=== PATIENT | female | born 1950 | race Caucasian/White ===

== ENCOUNTER 2020-05-06 17:58 | Observation (INO) | payer OTHER ==
--- NOTE | 2020-05-06 18:13 | PDOC ---
Rapid Medical Evaluation Chief Complaint: Eye Problem Time Seen by Provider: 05/06/20 18:11 Medical Evaluation: Allergies Allergy/AdvReac Type Severity Reaction Status Date / Time No Known Allergies Allergy Verified 10/25/14 17:31 Vital Signs Temp Pulse Resp BP Pulse Ox 98.6 F 91 H 16 159/78 98 05/06/20 18:08 05/06/20 18:08 05/06/20 18:08 05/06/20 18:08 05/06/20 18:08 05/06/20 18:11 CC: sudden broken blood vessell to left eye, no exertional activity, hx htn Exam: vss, noted sub hemorrhage to lat aspect of left sclera Plan: ft Discharge Disposition - Diagnosis Subconjunctival hemorrhage - Referrals - Patient Instructions - Post Discharge Activity
[2020-05-06 18:18] VITALS: BMI 24.5
--- NOTE | 2020-05-06 18:24 | PDOC ---
History of Present Illness - General Chief Complaint: Eye Problem Stated Complaint: L EYE REDNESS Time Seen by Provider: 05/06/20 18:11 History Source: Patient Exam Limitations: No Limitations Past History - Travel History Traveled outside of the country in the last 30 days: No Close contact w/someone who was outside of country & ill: No - Medical History Allergies/Adverse Reactions: Allergies Allergy/AdvReac Type Severity Reaction Status Date / Time No Known Allergies Allergy Verified 10/25/14 17:31 Home Medications: Ambulatory Orders Valsartan/Hydrochlorothiazide [Valsartan-Hctz 80-12.5 mg Tab] 1 each PO DAILY 05/06/20 Anemia: No Asthma: No Cancer: No Cardiac Disorders: No CVA: No COPD: No CHF: No Dementia: No Diabetes: No GI Disorders: No Disorders: No HTN: No Hypercholesterolemia: No Liver Disease: No Seizures: No Thyroid Disease: No - Surgical History Abdominal Surgery: No Appendectomy: No Cardiac Surgery: No Cholecystectomy: No Lung Surgery: No Neurologic Surgery: No Orthopedic Surgery: No - Psycho-Social/Smoking History Smoking Status: No Smoking History: Never smoked Have you smoked in the past 12 months: No Number of Cigarettes Smoked Daily: 0 - Substance Abuse Hx (Audit-C & DAST Scrn) How often the patient has a drink containing alcohol: Never Score: In Men: 4 or > Positive; In Women: 3 or > Positive: 0 Screen Result (Pos requires Nsg. Audit-10AR): Negative Review of Systems - Review of Systems Able to Perform ROS?: Yes Comments:: 05/06/20 21:36 CONSTITUTIONAL: Absent: fever, chills, diaphoresis, generalized weakness, malaise, loss of appetite HEENT: Present: Redness to the left eye absent: rhinorrhea, nasal congestion, throat pain, throat swelling, difficulty swallowing, mouth swelling, ear pain, eye pain, visual Changes CARDIOVASCULAR: Absent: chest pain, loss of consciousness, palpitations, irregular heart rate, peripheral edema RESPIRATORY: Absent: cough, shortness of breath, dyspnea with exertion, orthopnea, wheezing, stridor, hemoptysis GASTROINTESTINAL: Absent: abdominal pain, abdominal distension, nausea, vomiting, diarrhea, constipation, melena, hematochezia GENITOURINARY: Absent: dysuria, frequency, urgency, hesitancy, hematuria, flank pain, genital pain MUSCULOSKELETAL: Absent: myalgia, arthralgia, joint swelling SKIN: Absent: rash, itching, pallor HEMATOLOGIC/IMMUNOLOGIC: Absent: easy bleeding, easy bruising, lymphadenopathy, frequent infections ENDOCRINE: Absent: unexplained weight gain, unexplained weight loss, heat intolerance, cold intolerance NEUROLOGIC: Present: Lightheadedness absent: headache, focal weakness or paresthesias, dizziness, unsteady gait, seizure, mental status changes, bladder or bowel incontinence PSYCHIATRIC: Absent: anxiety, depression, suicidal or homicidal ideation, hallucinations. Is the patient limited Malaysian proficient: No *Physical Exam - Vital Signs Last Vital Signs Temp Pulse Resp BP Pulse Ox 98.6 F 91 H 16 159/78 98 05/06/20 18:08 05/06/20 18:08 05/06/20 18:08 05/06/20 18:08 05/06/20 18:08 - Physical Exam 05/06/20 21:37 GENERAL: Well developed, well nourished. Awake and alert. No acute distress. HEENT: Normocephalic, atraumatic. PERRLA, EOMI. No conjunctival pallor. Left sclera with subconjunctival hemorrhage at the lateral canthus. Sclera are non-icteric. Moist mucous membranes. Oropharynx is clear. NECK: Supple. Full ROM. No JVD. Carotid pulses 2+ and symmetric, without bruits. No thyromegaly. No lymphadenopathy. CARDIOVASCULAR: Regular rate and rhythm. No murmurs, rubs, or gallops. Distal pulses are 2+ and symmetric. PULMONARY: No evidence of respiratory distress. Lungs clear to auscultation bilaterally. No wheezing, rales or rhonchi. ABDOMINAL: Soft. Non-tender. Non-distended. No rebound or guarding. No organomegaly. Normoa ctive bowel sounds. MUSCULOSKELETAL Normal range of motion at all joints. No bony deformities or tenderness. No CVA tenderness. EXTREMITIES: No cyanosis. No clubbing. No edema. No calf tenderness. SKIN: Warm and dry. Normal capillary refill. No rashes. No jaundice. NEUROLOGICAL: Alert, awake, appropriate. Cranial nerves 2-12 intact. No deficits to light touch and temperature in face, upper extremities and lower extremities. No motor deficits in the in face, upper extremities and lower extremities. Normoreflexic in the upper and lower extremities. Normal speech. Toes are down-going bilate rally. Gait is normal without ataxia. PSYCHIATRIC: Cooperative. Good eye contact. Appropriate mood and affect. Heart Score/ECG Review - History History: Slightly suspicious - Electrocardiogram EKG: Non specific repolarization disturbance - Age Age: >/= 65 - Risk Factors Risk Factors Heart Score: Yes Hx Hypercholesterolemia, Yes Hx Hypertension Based on the list above the patient has:: 1-2 risk factors - Troponin Troponin: </= normal limit - Score Heart Score - Total: 4 ED Treatment Course - LABORATORY CBC & Chemistry Diagram: 05/06/20 19:00 05/06/20 19:00 Medical Decision Making - Medical Decision Making 05/06/20 21:38 The patient is a 69-year-old female past medical history of hyperlipidemia, HLD, presents to the ER today for lightheadedness and redness to her left eye. She states that she has been lightheaded for the past 4 days. She states that she has noticed her blood pressure has been elevated at home. She states that she was working on a computer today when she had redness to her left lateral eye, which prompted her to come to the emergency department. She states she took 2 aspirin prior to arrival. Denies chest pain, difficulty breathing, nausea, vomiting, fever. A/P: Lightheadedness, subconjunctival hemorrhage. On exam patient is a left subconjunctival hemorrhage to the left lateral canthus. Vision is 20/20 OU, OS, OD Regular rate and rhythm on exam. No murmurs rubs or gallops. Patient is neurologically intact with no focal deficits. Basic labs, EKG ordered given new onset of lightheadedness. EKG shows rate of 77 bpm, normal axis. QTC 439. Flattened T waves in V2, V3. Q waves in lead III, possible new right bundle branch in V1. No old EKG to compare to. Labs are grossly unremarkable. COVID sent. Head CT negative for acute pathology including bleed Given EKG changes with new onset lightheadedness, will place the patient to telemetry opts for further management of her symptoms. Symphony paged. Discharge - Discharge Information Problems reviewed: Yes Clinical Impression/Diagnosis: Abnormal EKG, Lightheaded Subconjunctival hemorrhage Qualifiers: Laterality: left Qualified Code(s): H11.32 - Conjunctival hemorrhage, left eye Condition: Stable - Admission Yes - Follow up/Referral Referrals: Shital Dial MD [Primary Care Provider] - - Patient Discharge Instructions - Post Discharge Activity
[2020-05-06 19:34] LABS: BASO % 1.1 % (0-2.0); EOS % 0.8 % (0-4.5); HEMATOCRIT 40.8 % (32.4-45.2); HEMOGLOBIN 13.5 GM/dL (10.7-15.3); LYMPH % 35.2 % (8-40); MCH 29.4 pg (25.7-33.7); MEAN CELL VOLUME 89.1 fl (80-96); MEAN PLT VOLUME 10.4 fl (7.5-11.1); MONO % 8.5 % (3.8-10.2); NEUT % 54.4 % (42.8-82.8); PLATELET COUNT 202 K/MM3 (134-434); RBC 4.58 M/mm3 (3.60-5.2); WHITE BLOOD COUNT 7.1 K/mm3 (4.0-10.0)
[2020-05-06 19:41] LABS: INR 1.04 (0.83-1.09); PROTHROMBIN TIME (PATIENT) 12.3 SEC (9.7-13.0)
[2020-05-06 20:19] LABS: ALK PHOS 91 U/L (45-117); ANION GAP 11 MMOL/L (8-16); BILIRUBIN,TOTAL 0.4 mg/dL (0.2-1); BLOOD UREA NITROGEN 21.9 mg/dL (7-18); CALCIUM 9.4 mg/dL (8.5-10.1); CHLORIDE 105 mmol/L (98-107); CO2 24 mmol/L (21-32); CREATININE 0.9 mg/dL (0.55-1.3); GLUCOSE,RANDOM 102 mg/dL (74-106); POTASSIUM 3.8 mmol/L (3.5-5.1); SGOT/AST 20 U/L (15-37); SGPT/ALT 24 U/L (13-61); SODIUM 139 mmol/L (136-145); TOT PROT 8.4 g/dl (6.4-8.2)
--- NOTE | 2020-05-06 23:14 | HP ---
<Ruth Carpenter - Last Filed: 05/06/20 23:53> CHIEF COMPLAINT: left eye bleeding PCP: Dr. Dial HISTORY OF PRESENT ILLNESS: 69 y.o. F PMH HTN presenting for 1 day history of left conjunctival hemorrhage. Patient noticed there was blood in the lateral left conjunctiva earlier this afternoon and was instructed by her family to go to the ED. Patient denies any trauma to the left eye; no straining while defecating, no coughing fits. Patient also endorsing lightheadedness that she has had for the past few days but worsened earlier today when she saw blood in her eye. On my exam patients lightheadedness has completely resolved. She states she was prescribed valsartan-hctz combo pill 160-25mg daily by her PCP however she only takes half of the pill daily because she "does not believe in taking medication". Endorses having skipped doses in the past. She does not take any blood thinners but will sometimes take NSAIDS for minor aches and pains. ROS: + lightheadedness Denies: vision changes/ diplopia, chest pain, SOB, palpitations, diaphoresis, abd pain, urine/bowel habit changes, myalgias, parasthesias ER course was notable for: (1) Trop negative x 1 (2) EKG: NSR rate 77 bpm. TWI in V1; flattened TW V2/V3. qtc 439 (3) CT head negative Recent Travel: denies PAST MEDICAL HISTORY: htn PAST SURGICAL HISTORY: right olecranon ORIF 2014 Social History: Smoking: denies Alcohol: denies Drugs: denies Allergies No Known Allergies Allergy (Verified 10/25/14 17:31) HOME MEDICATIONS: Home Medications Medication Instructions Recorded Valsartan/Hydrochlorothiazide 1 each PO DAILY 05/06/20 [Valsartan-Hctz 80-12.5 mg Tab] PHYSICAL EXAMINATION Vital Signs - 24 hr 05/06/20 05/06/20 05/06/20 18:08 19:06 19:57 Temperature 98.6 F Pulse Rate 91 H Pulse Rate [ 80 Apical] Respiratory 16 Rate Blood Pressure 159/78 Blood Pressure 157/90 [Right Arm] O2 Sat by Pulse 98 100 Oximetry (%) GENERAL: AAOx3, in no acute distress HEENT: NCAT, PERRLA, EOMI. Left lateral and inferior conjunctival hemorrhage, no active bleeding. Sclera anicteric, oropharynx clear w/o exudates. MMM. NECK: Normal ROM, supple, no JVD LUNGS: CTABL no wheezes/ rhonchi/ rales. No distress, speaks in full sentences. No increased work of breathing. HEART: RRR, normal S1 S2, no M/R/G, peripheral pulses 2+ and equal b/l ABDOMEN: Soft, NTND, + BS. No guarding or rebound. No organomegaly. MSK: ROM WNL EXTREMITIES: Normal inspection. No peripheral edema. No clubbing or cyanosis. NEUROLOGICAL: CN II-XII intact. No focal sensorimotor deficits. SKIN: Warm, Dry, normal turgor, no rashes or lesions noted Laboratory Results - last 24 hr 05/06/20 05/06/20 05/06/20 19:00 19:00 19:00 WBC 7.1 RBC 4.58 Hgb 13.5 Hct 40.8 MCV 89.1 MCH 29.4 MCHC 33.0 RDW 14.0 Plt Count 202 MPV 10.4 Absolute Neuts (auto) 3.9 Neutrophils % 54.4 Lymphocytes % 35.2 Monocytes % 8.5 Eosinophils % 0.8 Basophils % 1.1 Nucleated RBC % 0 PT with INR 12.30 INR 1.04 Sodium 139 Potassium 3.8 Chloride 105 Carbon Dioxide 24 Anion Gap 11 BUN 21.9 H Creatinine 0.9 Est GFR (CKD-EPI)AfAm 75.61 Est GFR (CKD-EPI)NonAf 65.24 Random Glucose 102 Calcium 9.4 Total Bilirubin 0.4 AST 20 ALT 24 Alkaline Phosphatase 91 Creatine Kinase 98 Troponin I < 0.02 Total Protein 8.4 H Albumin 4.0 TSH 1.46 ASSESSMENT/PLAN: 69 y.o. F PMH HTN presenting for left conjunctival hemorrhage. Admitted to tele obs for EKG changes. #EKG changes -EKG: NSR rate 77 bpm. TWI in V1; flattened TW V2/V3. qtc 439; no prior for comparison -trop negative x 1; trend -cardio was consulted while in ED: Dr. Cruz -monitor on tele obs #Conjunctival hemorrhage -No active bleeding, no vision changes, extraocular muscles are intact -continue to monitor for worsening bleeding -avoid NSAIDs for now #HTN -continue home meds: Valsartan/hctz 160-25mg daily -regular bp monitoring #Lightheadedness -now resolved -f/u UA #FEN -no standing fluids -monitor & replete lytes prn -na controlled diet #PPX -DVT: early ambulation. SCDs while supine. #Dispo tele obs Visit type - Emergency Visit Emergency Visit: Yes ED Registration Date: 05/06/20 Care time: The patient presented to the Emergency Department on the above date and was hospitalized for further evaluation of their emergent condition. - New Patient This patient is new to me today: Yes Date on this admission: 05/06/20 - Critical Care Critical Care patient: No ATTENDING PHYSICIAN STATEMENT I saw and evaluated the patient. I reviewed the resident's note and discussed the case with the resident. I agree with the resident's findings and plan as documented. SUBJECTIVE: OBJECTIVE: ASSESSMENT AND PLAN: <Essence Lin - Last Filed: 05/07/20 06:41> CHIEF COMPLAINT: PCP: HISTORY OF PRESENT ILLNESS: ER course was notable for: (1) (2) (3) Recent Travel: PAST MEDICAL HISTORY: PAST SURGICAL HISTORY: Social History: Smoking: Alcohol: Drugs: Allergies No Known Allergies Allergy (Verified 10/25/14 17:31) HOME MEDICATIONS: Home Medications Medication Instructions Recorded Valsartan/Hydrochlorothiazide 1 each PO DAILY 05/06/20 [Valsartan-Hctz 160-25 mg Tab] REVIEW OF SYSTEMS CONSTITUTIONAL: Absent: fever, chills, diaphoresis, generalized weakness, malaise, loss of appetite, weight change HEENT: Absent: rhinorrhea, nasal congestion, throat pain, throat swelling, difficulty swallowing, mouth swelling, ear pain, eye pain, visual changes CARDIOVASCULAR: Absent: chest pain, syncope, palpitations, irregular heart rate, lightheadedness, peripheral edema RESPIRATORY: Absent: cough, shortness of breath, dyspnea with exertion, orthopnea, wheezing, stridor, hemoptysis GASTROINTESTINAL: Absent: abdominal pain, abdominal distension, nausea, vomiting, diarrhea, constipation, melena, hematochezia GENITOURINARY: Absent: dysuria, frequency, urgency, hesitancy, hematuria, flank pain, genital pain MUSCULOSKELETAL: Absent: myalgia, arthralgia, joint swelling, back pain, neck pain SKIN: Absent: rash, itching, pallor HEMATOLOGIC/IMMUNOLOGIC: Absent: easy bleeding, easy bruising, lymphadenopathy, frequent infections ENDOCRINE: Absent: unexplained weight gain, unexplained weight loss, heat intolerance, cold intolerance NEUROLOGIC: Absent: headache, focal weakness or paresthesias, dizziness, unsteady gait, seizure, mental status changes, bladder or bowel incontinence PSYCHIATRIC: Absent: anxiety, depression, suicidal or homicidal ideation, hallucinations. PHYSICAL EXAMINATION Vital Signs - 24 hr 05/06/20 05/06/20 05/06/20 18:08 19:06 19:57 Temperature 98.6 F Pulse Rate 91 H Pulse Rate [ 80 Apical] Pulse Rate [ Standing] Respiratory 16 Rate Blood Pressure 159/78 Blood Pressure 157/90 [Right Arm] Blood Pressure [Standing] O2 Sat by Pulse 98 100 Oximetry (%) 05/06/20 05/06/20 22:42 23:13 Temperature 98 F Pulse Rate 77 Pulse Rate [ Apical] Pulse Rate [ 85 Standing] Respiratory 16 Rate Blood Pressure 156/71 Blood Pressure [Right Arm] Blood Pressure 141/66 [Standing] O2 Sat by Pulse 100 Oximetry (%) GENERAL: Awake, alert, and fully oriented, in no acute distress. HEAD: Normal with no signs of trauma. EYES: Pupils equal, round and reactive to light, extraocular movements intact, sclera anicteric, conjunctiva clear. No lid lag. EARS, NOSE, THROAT: Ears normal, nares patent, oropharynx clear without exudates. Moist mucous membranes. NECK: Normal range of motion, supple without lymphadenopathy, JVD, or masses. LUNGS: Breath sounds equal, clear to auscultation bilaterally. No wheezes, and no crackles. No accessory muscle use. HEART: Regular rate and rhythm, normal S1 and S2 without murmur, rub or gallop. ABDOMEN: Soft, nontender, not distended, normoactive bowel sounds, no guarding, no rebound, no masses. No hepatomegaly or splenomegaly. MUSCULOSKELETAL: Normal range of motion at all joints. No bony deformities or tenderness. No CVA tenderness. UPPER EXTREMITIES: 2+ pulses, warm, well-perfused. No cyanosis. No clubbing. No peripheral edema. LOWER EXTREMITIES: 2+ pulses, warm, well-perfused. No calf tenderness. No peripheral edema. NEUROLOGICAL: Cranial nerves II-XII intact. Normal speech. Normal gait. PSYCHIATRIC: Cooperative. Good eye contact. Appropriate mood and affect. SKIN: Warm, dry, normal turgor, no rashes or lesions noted, normal capillary refill. Laboratory Results - last 24 hr 05/06/20 05/06/20 05/06/20 19:00 19:00 19:00 WBC 7.1 RBC 4.58 Hgb 13.5 Hct 40.8 MCV 89.1 MCH 29.4 MCHC 33.0 RDW 14.0 Plt Count 202 MPV 10.4 Absolute Neuts (auto) 3.9 Neutrophils % 54.4 Lymphocytes % 35.2 Monocytes % 8.5 Eosinophils % 0.8 Basophils % 1.1 Nucleated RBC % 0 PT with INR 12.30 INR 1.04 Sodium 139 Potassium 3.8 Chloride 105 Carbon Dioxide 24 Anion Gap 11 BUN 21.9 H Creatinine 0.9 Est GFR (CKD-EPI)AfAm 75.61 Est GFR (CKD-EPI)NonAf 65.24 Random Glucose 102 Calcium 9.4 Total Bilirubin 0.4 AST 20 ALT 24 Alkaline Phosphatase 91 Creatine Kinase 98 Troponin I < 0.02 Total Protein 8.4 H Albumin 4.0 TSH 1.46 Urine Color Urine Appearance Urine pH Ur Specific [place] Urine Protein Urine Glucose (UA) Urine Ketones Urine Blood Urine Nitrite Urine Bilirubin Urine Urobilinogen Ur Leukocyte Esterase Urine WBC (Auto) Urine RBC (Auto) Urine Casts (Auto) U Epithel Cells (Auto) Urine Bacteria (Auto) 05/06/20 05/06/20 23:00 23:59 WBC RBC Hgb Hct MCV MCH MCHC RDW Plt Count MPV Absolute Neuts (auto) Neutrophils % Lymphocytes % Monocytes % Eosinophils % Basophils % Nucleated RBC % PT with INR INR Sodium Potassium Chloride Carbon Dioxide Anion Gap BUN Creatinine Est GFR (CKD-EPI)AfAm Est GFR (CKD-EPI)NonAf Random Glucose Calcium Total Bilirubin AST ALT Alkaline Phosphatase Creatine Kinase 99 Troponin I < 0.02 Total Protein Albumin TSH Urine Color Yellow Urine Appearance Clear Urine pH 7.0 Ur Specific [place] 1.006 L Urine Protein Negative Urine Glucose (UA) Negative Urine Ketones Trace H Urine Blood Negative Urine Nitrite Negative Urine Bilirubin Negative Urine Urobilinogen 0.2 Ur Leukocyte Esterase 1+ H Urine WBC (Auto) 76 Urine RBC (Auto) 6 Urine Casts (Auto) 1 U Epithel Cells (Auto) 6 Urine Bacteria (Auto) 19 ASSESSMENT/PLAN: ATTENDING PHYSICIAN STATEMENT I saw and evaluated the patient. I reviewed the resident's note and discussed the case with the resident. I agree with the resident's findings and plan as documented. SUBJECTIVE: OBJECTIVE: ASSESSMENT AND PLAN: 69 year old Female with a PMHx notable for HTN presenting with left conjunctival hemorrhage. Admitted to telemetry obs for EKG changes. #EKG changes -Trop negative x 1; continue to trend -Cardiology was consulted #Conjunctival hemorrhage -No active bleeding, no vision changes, extraocular muscles are intact -Supportive care
[2020-05-07 00:19] LABS: EPI CELLS 6 /uL (0-25.1); HYALINE CASTS 1 /uL (0-3.1); URINE APPEARANCE CLEAR; URINE BACTERIA 19 /uL (0-1359); URINE BILIRUBIN NEGATIVE (NEGATIVE); URINE COLOR YELLOW; URINE GLUCOSE (UA) NEGATIVE (NEGATIVE); URINE KETONE TRACE (NEGATIVE); URINE LEUK ESTERASE 1+ (NEGATIVE); URINE NITRITE NEGATIVE (NEGATIVE); URINE PROTEIN NEGATIVE (NEGATIVE); URINE RBC 6 /uL (0-23.9); URINE UROBILINOGEN 0.2 mg/dL (0.2-1.0); URINE WBC 76 /uL (0-25.8)
[2020-05-07 06:05] LABS: HEMATOCRIT 37.6 % (32.4-45.2); HEMOGLOBIN 12.6 GM/dL (10.7-15.3); MCH 29.3 pg (25.7-33.7); MCHC 33.5 g/dl (32.0-36.0); MEAN CELL VOLUME 87.4 fl (80-96); MEAN PLT VOLUME 10.4 fl (7.5-11.1); PLATELET COUNT 198 K/MM3 (134-434); RBC 4.31 M/mm3 (3.60-5.2); RDW 13.9 % (11.6-15.6); WHITE BLOOD COUNT 6.3 K/mm3 (4.0-10.0)
[2020-05-07 06:33] LABS: ANION GAP 5 MMOL/L (8-16); BLOOD UREA NITROGEN 16.9 mg/dL (7-18); CALCIUM 9.3 mg/dL (8.5-10.1); CHLORIDE 108 mmol/L (98-107); CO2 28 mmol/L (21-32); CREATININE 0.8 mg/dL (0.55-1.3); GLUCOSE,RANDOM 100 mg/dL (74-106); MAGNESIUM 2.2 mg/dL (1.8-2.4); PHOSPHOROUS 4.1 mg/dL (2.5-4.9); POTASSIUM 3.9 mmol/L (3.5-5.1); SODIUM 141 mmol/L (136-145)
--- NOTE | 2020-05-07 07:48 | PN ---
Teaching Attending Note Name of Resident: Mark Muhammad ATTENDING PHYSICIAN STATEMENT I saw and evaluated the patient. I reviewed the resident's note and discussed the case with the resident. I agree with the resident's findings and plan as documented. SUBJECTIVE: Patient denies any chest pain , no shortness of breath. OBJECTIVE: Vital Signs Temperature 98 F 05/06/20 22:42 Pulse Rate 57 L 05/07/20 03:11 Respiratory Rate 14 05/07/20 03:11 Blood Pressure 139/75 05/07/20 03:11 O2 Sat by Pulse Oximetry (%) 100 05/07/20 03:11 Initial Vital Signs Temp Pulse Resp BP Pulse Ox 98.6 F 91 H 16 159/78 98 05/06/20 18:08 05/06/20 18:08 05/06/20 18:08 05/06/20 18:08 05/06/20 18:08 PE: As per resident's note Chest: CTA BL CVS S1S2+ CBCD WBC 6.3 K/mm3 (4.0-10.0) 05/07/20 05:45 RBC 4.31 M/mm3 (3.60-5.2) 05/07/20 05:45 Hgb 12.6 GM/dL (10.7-15.3) 05/07/20 05:45 Hct 37.6 % (32.4-45.2) 05/07/20 05:45 MCV 87.4 fl (80-96) 05/07/20 05:45 MCHC 33.5 g/dl (32.0-36.0) 05/07/20 05:45 RDW 13.9 % (11.6-15.6) 05/07/20 05:45 Plt Count 198 K/MM3 (134-434) 05/07/20 05:45 MPV 10.4 fl (7.5-11.1) 05/07/20 05:45 CMP Sodium 141 mmol/L (136-145) 05/07/20 05:45 Potassium 3.9 mmol/L (3.5-5.1) 05/07/20 05:45 Chloride 108 mmol/L (98-107) H 05/07/20 05:45 Carbon Dioxide 28 mmol/L (21-32) 05/07/20 05:45 Anion Gap 5 MMOL/L (8-16) L 05/07/20 05:45 BUN 16.9 mg/dL (7-18) 05/07/20 05:45 Creatinine 0.8 mg/dL (0.55-1.3) 05/07/20 05:45 Random Glucose 100 mg/dL (74-106) 05/07/20 05:45 Calcium 9.3 mg/dL (8.5-10.1) 05/07/20 05:45 Total Bilirubin 0.4 mg/dL (0.2-1) 05/06/20 19:00 AST 20 U/L (15-37) 05/06/20 19:00 ALT 24 U/L (13-61) 05/06/20 19:00 Alkaline Phosphatase 91 U/L (45-117) 05/06/20 19:00 Total Protein 8.4 g/dl (6.4-8.2) H 05/06/20 19:00 Albumin 4.0 g/dl (3.4-5.0) 05/06/20 19:00 CARDIAC ENZYMES Creatine Kinase 99 U/L (26-192) 05/06/20 23:00 Troponin I < 0.02 ng/ml (0.00-0.05) 05/07/20 05:45 Current Medications Generic Name Dose Route Start Last Admin Trade Name Freq PRN Reason Stop Dose Admin Hydrochlorothiazide 25 mg 05/07/20 10:00 Hctz - PO DAILY [facility] Valsartan 160 mg 05/07/20 10:00 Diovan - PO DAILY [facility] Home Medications Medication Instructions Recorded Valsartan/Hydrochlorothiazide 1 each PO DAILY 05/06/20 [Valsartan-Hctz 160-25 mg Tab] CT scan: mild volume loss without evidence of acute Intracn pathology EKG: NSr, rate 77, flattening of T-waves on V2-V3 ASSESSMENT AND PLAN: This patient is a 69yof with PMhx of HTN , with EKG changes and was found to have conjunctival hemorrhage. patient is placed tele obs. #EKG changes: flattening of T-waves on V2/v3, qtc 439, 3 sets of trops are neg ative, cardio consulted; dr Cruz, as per cardio patient can be discharged home and further w/u as an outpatient. follow up with Dr Cruz within a week period. #Conjunctival hemorrhage: patient has no pain, will follow up with her own ophthalomologist #HTN controlled now: continue home meds: Valsartan/hctz 160-25mg daily, as per patient , she takes 1/2of the tablet , was suggested to take it as prescribed , one whole one #Lightheadedness: now resolved DVT Px: early ambulation. SCDs while supine.
--- NOTE | 2020-05-07 09:37 | EKG ---
Test Reason : Blood Pressure : / mmHG Vent. Rate : 077 BPM Atrial Rate : 077 BPM P-R Int : 144 ms QRS Dur : 080 ms QT Int : 388 ms P-R-T Axes : 063 010 061 degrees QTc Int : 439 ms NORMAL SINUS RHYTHM LEFT ATRIAL ENLARGEMENT INFERIOR INFARCT , AGE UNDETERMINED ABNORMAL ECG Confirmed by MD JUDI, RUTH ANN ([id number]) on 05/07/2020 9:37:17 AM Referred By: Confirmed By:RUTH ANN LAU MD
[2020-05-07] MEDS ORDERED: HYDROCHLOROTHIAZIDE 25 MG TABLET (FP) PO SCH (10:00)
[2020-05-07] MEDS ORDERED: VALSARTAN 160 MG TABLET (UD) PO SCH (10:00)
[2020-05-07] MEDS ORDERED: PATIENT'S OWN MEDICATION (NON-FORMULARY) (Valsartan/Hydrochlorothiazide [Valsartan-Hctz 16 PO SCH (10:00)
--- NOTE | 2020-05-07 10:51 | CON.CARD ---
Consult Consult Specialty:: Cardiology Referred by:: Hospitalist Medicine Reason for Consultation:: Abnormal ECG - History of Present Illness Chief Complaint: Subconjunctival hematoma, light-headedness History of Present Illness: 69 y.o. F PMH HTN presenting for 1 day history of left conjunctival hemorrhage. Patient noticed there was blood in the lateral left conjunctiva earlier this afternoon and was instructed by her family to go to the ED. Patient denies any trauma to the left eye; no straining while defecating, no coughing fits. Patient also reports positional lightheadedness since resolved. She states she was prescribed valsartan-hctz combo pill 160-25mg daily by her PCP however she only takes half of the pill daily because she "does not believe in taking medication". Endorses having skipped doses in the past. She does not take any blood thinners but will sometimes take NSAIDS for minor aches and pains. ROS: + lightheadedness Denies: vision changes/ diplopia, chest pain, SOB, palpitations, diaphoresis, abd pain, urine/bowel habit changes, myalgias, parasthesias, orthopnea, PND, LE edema or change in exercise capacity - History Source History Provided By: Patient Limitations to Obtaining History: No Limitations - Past Medical History Cardio/Vascular: Yes: HTN ...: No - Alcohol/Substance Use Hx Alcohol Use: Yes (RARE) - Smoking History Smoking history: Never smoked Have you smoked in the past 12 months: No Aproximately how many cigarettes per day: 0 Home Medications - Allergies Allergies/Adverse Reactions: Allergies Allergy/AdvReac Type Severity Reaction Status Date / Time No Known Allergies Allergy Verified 10/25/14 17:31 - Home Medications Home Medications: Ambulatory Orders Valsartan/Hydrochlorothiazide [Valsartan-Hctz 80-12.5 mg Tab] 1 tab PO DAILY 05/07/20 Review of Systems - Review of Systems Neurological: reports: Dizziness Vital Signs: Vital Signs Temperature 98 F 05/06/20 22:42 Pulse Rate 100 H 05/07/20 08:46 Respiratory Rate 05/07/20 08:00 Blood Pressure 149/91 05/07/20 08:46 O2 Sat by Pulse Oximetry (%) 98 05/07/20 07:11 Constitutional: Yes: No Distress, Calm Neck: Yes: Supple Respiratory: Yes: Regular, CTA Bilaterally Gastrointestinal: Yes: Normal Bowel Sounds, Soft Cardiovascular: Yes: Regular Rate and Rhythm JVD: No Carotid Bruit: No Heart Sounds: Yes: S1, S2 Edema: No - Other Data Labs, Other Data: CBC, BMP 05/07/20 05:45 05/07/20 05:45 INR, PTT INR 1.04 (0.83-1.09) 05/06/20 19:00 Troponin, BNP 05/06/20 05/06/20 05/07/20 19:00 23:00 05:45 Troponin I < 0.02 < 0.02 < 0.02 Troponin, BNP 05/06/20 05/06/20 05/07/20 19:00 23:00 05:45 Troponin I < 0.02 < 0.02 < 0.02 NSR inferior infarct age indeterminate Problem List - Problems (1) Hypertensive heart disease Code(s): I11.9 - HYPERTENSIVE HEART DISEASE WITHOUT HEART FAILURE Qualifiers: Heart failure presence: without heart failure Qualified Code(s): I11.9 - Hypertensive heart disease without heart failure (2) Orthostatic dizziness Code(s): R42 - DIZZINESS AND GIDDINESS (3) Abnormal EKG Code(s): R94.31 - ABNORMAL ELECTROCARDIOGRAM [ECG] [EKG] (4) Subconjunctival hemorrhage Code(s): H11.30 - CONJUNCTIVAL HEMORRHAGE, UNSPECIFIED EYE Qualifiers: Laterality: left Qualified Code(s): H11.32 - Conjunctival hemorrhage, left eye Assessment/Plan 1. Abnormal ECG 2. Left subconjunctival hemorrhage 3. HTN 4. Orthostatic dizziness since resolved P:1. Ruled out for [place] 2. Continue Valsartan 80 qd as hemodynamics tolerate 3. May d/c home with outpatient w/u for abnormal ECG 4. Thank you for consultative opportunity
--- NOTE | 2020-05-07 12:11 | EKG ---
Test Reason : Blood Pressure : / mmHG Vent. Rate : 076 BPM Atrial Rate : 076 BPM P-R Int : 134 ms QRS Dur : 082 ms QT Int : 420 ms P-R-T Axes : 053 -09 038 degrees QTc Int : 472 ms NORMAL SINUS RHYTHM INFERIOR-POSTERIOR INFARCT (CITED ON OR BEFORE 06-MAY-2020) ABNORMAL ECG Confirmed by MD LAU MOYSES ([id number]) on 05/07/2020 12:11:06 PM Referred By: Confirmed By:RUTH ANN LAU MD
[2020-05-07 12:18] VITALS: BP 144/66; PULSE 71
--- NOTE | 2020-05-07 15:02 | DS ---
Physical Exam: SUBJECTIVE: No overnight events. Patient seen and examined. Denies changes in vision, diplopia, and pain. ROS negative. OBJECTIVE: Vital Signs Period Temp Pulse Resp BP Sys/[place] Pulse Ox Last 24 Hr 98 F-98.6 F 57-100 14-16 139-170/66-91 98-100 PHYSICAL EXAM GENERAL: The patient is awake, alert, and fully oriented, in no acute distress. HEAD: Normal with no signs of trauma. MMM EYES: PERRL, extraocular movements intact, L eye conjunctival hemorrhage. No active bleeding. LUNGS: Breath sounds equal, clear to auscultation bilaterally, no wheezes, no crackles, no accessory muscle use. HEART: Regular rate and rhythm, S1, S2 without murmur, rub or gallop. ABDOMEN: Soft, nontender, nondistended, normoactive bowel sounds, no guarding, no rebound EXTREMITIES: 2+ pulses, warm, well-perfused, no edema. NEUROLOGICAL: Normal speech, gait not observed. PSYCH: Normal mood, normal affect. SKIN: Warm, dry, normal turgor, no rashes or lesions noted. LABS Laboratory Results - last 24 hr 05/06/20 05/06/20 05/06/20 19:00 19:00 19:00 WBC 7.1 RBC 4.58 Hgb 13.5 Hct 40.8 MCV 89.1 MCH 29.4 MCHC 33.0 RDW 14.0 Plt Count 202 MPV 10.4 Absolute Neuts (auto) 3.9 Neutrophils % 54.4 Lymphocytes % 35.2 Monocytes % 8.5 Eosinophils % 0.8 Basophils % 1.1 Nucleated RBC % 0 PT with INR 12.30 INR 1.04 Sodium 139 Potassium 3.8 Chloride 105 Carbon Dioxide 24 Anion Gap 11 BUN 21.9 H Creatinine 0.9 Est GFR (CKD-EPI)AfAm 75.61 Est GFR (CKD-EPI)NonAf 65.24 Random Glucose 102 Calcium 9.4 Phosphorus Magnesium Total Bilirubin 0.4 AST 20 ALT 24 Alkaline Phosphatase 91 Creatine Kinase 98 Troponin I < 0.02 Total Protein 8.4 H Albumin 4.0 TSH 1.46 Urine Color Urine Appearance Urine pH Ur Specific [place] Urine Protein Urine Glucose (UA) Urine Ketones Urine Blood Urine Nitrite Urine Bilirubin Urine Urobilinogen Ur Leukocyte Esterase Urine WBC (Auto) Urine RBC (Auto) Urine Casts (Auto) U Epithel Cells (Auto) Urine Bacteria (Auto) 05/06/20 05/06/20 05/07/20 23:00 23:59 05:45 WBC 6.3 RBC 4.31 Hgb 12.6 Hct 37.6 MCV 87.4 MCH 29.3 MCHC 33.5 RDW 13.9 Plt Count 198 MPV 10.4 Absolute Neuts (auto) Neutrophils % Lymphocytes % Monocytes % Eosinophils % Basophils % Nucleated RBC % PT with INR INR Sodium Potassium Chloride Carbon Dioxide Anion Gap BUN Creatinine Est GFR (CKD-EPI)AfAm Est GFR (CKD-EPI)NonAf Random Glucose Calcium Phosphorus Magnesium Total Bilirubin AST ALT Alkaline Phosphatase Creatine Kinase 99 Troponin I < 0.02 Total Protein Albumin TSH Urine Color Yellow Urine Appearance Clear Urine pH 7.0 Ur Specific [place] 1.006 L Urine Protein Negative Urine Glucose (UA) Negative Urine Ketones Trace H Urine Blood Negative Urine Nitrite Negative Urine Bilirubin Negative Urine Urobilinogen 0.2 Ur Leukocyte Esterase 1+ H Urine WBC (Auto) 76 Urine RBC (Auto) 6 Urine Casts (Auto) 1 U Epithel Cells (Auto) 6 Urine Bacteria (Auto) 19 05/07/20 05:45 WBC RBC Hgb Hct MCV MCH MCHC RDW Plt Count MPV Absolute Neuts (auto) Neutrophils % Lymphocytes % Monocytes % Eosinophils % Basophils % Nucleated RBC % PT with INR INR Sodium 141 Potassium 3.9 Chloride 108 H Carbon Dioxide 28 Anion Gap 5 L BUN 16.9 Creatinine 0.8 Est GFR (CKD-EPI)AfAm 87.18 Est GFR (CKD-EPI)NonAf 75.22 Random Glucose 100 Calcium 9.3 Phosphorus 4.1 Magnesium 2.2 Total Bilirubin AST ALT Alkaline Phosphatase Creatine Kinase Troponin I < 0.02 Total Protein Albumin TSH Urine Color Urine Appearance Urine pH Ur Specific [place] Urine Protein Urine Glucose (UA) Urine Ketones Urine Blood Urine Nitrite Urine Bilirubin Urine Urobilinogen Ur Leukocyte Esterase Urine WBC (Auto) Urine RBC (Auto) Urine Casts (Auto) U Epithel Cells (Auto) Urine Bacteria (Auto) HOSPITAL COURSE: 69 YO F PMH of p/w a day of conjunctival hemorrhage in her left eye and lightheadedness for a few days. Pt denied recent trauma. EKG showed sinus rhythm but T waver inversion in V1 and flattened T waves in V2 & V3. Pt was admitted for observation of her EKG changes. There was no active ocular bleeding or visual changes. Her extraocular muscle movements are intact. Pt denied diplopia. Trops were <0.[address] head was negative for acute changes. Her orthostatic vitals were negative for orthostatic hypotension. Pt is stable for discharge. Date of Admission:05/06/20 EKG: sinus rhythm but T waver inversion in V1 and flattened T waves in V2 & V3. Date of Discharge: 05/07/20 Minutes to complete discharge: 41 Discharge Summary Problems reviewed: Yes Reason For Visit: LIGHTHEADEDNESS,ABNORMAL ELECTROCARDIOGRAPHY Current Active Problems Abnormal EKG (Acute) Hypertensive heart disease (Acute) Lightheaded (Acute) Orthostatic dizziness (Acute) Subconjunctival hemorrhage (Acute) Condition: Stable - Instructions Diet, Activity, Other Instructions: You came to the hospital for dizziness and pain in your eye. You are stable for discharge. Please continue your home medications as prescribed. Please follow up with your primary care physician within a week to manage your healthcare. Please follow up with an ice hockey coach at discharge to further diagnose and manage your eye care. Please follow up with your glove sewer, Dr. Cruz , ,within a week to follow up your EKG findings. Please continue to live a healthy lifestyle and eat low sodium foods. If you have new, worsening , or concerning symptoms please return to the ER or call 911. Referrals: Roby Gil MD [Staff Physician] - Lucho Cruz MD [Staff Physician] - Shital Dial MD [Primary Care Provider] - Disposition: HOME - Home Medications Comprehensive Discharge Medication List: Ambulatory Orders Valsartan/Hydrochlorothiazide [Valsartan-Hctz 80-12.5 mg Tab] 1 tab PO DAILY 05/07/20 This patient is new to me today: No Emergency Visit: No Critical Care patient: No - Discharge Referral Referred to [facility] No ATTENDING PHYSICIAN STATEMENT I saw and evaluated the patient. I reviewed the resident's note and discussed the case with the resident. I agree with the resident's findings and plan as documented. SUBJECTIVE: OBJECTIVE: ASSESSMENT AND PLAN:
[2020-05-07 15:17] VITALS: TEMP 98.4
[2020-05-08] MEDS ORDERED: VALSARTAN 80 MG TABLET (UD) PO SCH (10:00)
[2020-05-08] MEDS ORDERED: HYDROCHLOROTHIAZIDE 12.5 MG CAPSULE (FP) PO SCH (10:00)
[2020-05-08] MEDS ORDERED: PATIENT'S OWN MEDICATION (NON-FORMULARY) (Valsartan/Hydrochlorothiazide [Valsartan-Hctz 80 PO SCH (10:00)
== END 2020-05-07 14:50 | disposition home or self-care (01) ==
LOC: JER 17:58 → JERBED 22:42 → JICU 23:44
PROVIDERS: ADMIT Internal Medicine; ATTEND Internal Medicine
DX: R94.31 Abnormal electrocardiogram [ECG] [EKG] (principal); H11.32 Conjunctival hemorrhage, left eye; R42 Dizziness and giddiness; I11.9 Hypertensive heart disease without heart failure
CPT/HCPCS: 36415; 70450-TC; 80048; 80053; 81003; 82550; 83735; 84100; 84443; 84484; 85025; 85027; 85610; 93005; 93010; 99285-25; G0378; U0003

== ENCOUNTER 2020-12-18 10:51 | Emergency (ER) | payer OTHER ==
[2020-12-18 11:12] VITALS: BP 122/62; PULSE 105; TEMP 98.5; BMI 24.5
== END 2020-12-18 12:48 | disposition home or self-care (01) ==
LOC: JER 10:51
DX: R05 Cough (principal)
CPT/HCPCS: 71046-TC-FY; 99283-25